=== PATIENT | male | born 1960 | race Caucasian/White ===

== ENCOUNTER 2018-12-07 11:37 | Day surgery (SDC) | payer BC, OTHER ==
[~2018-12-07 11:37] MED LIST: Lactated Ringers 1,000 ML IV SCH; Propofol 200 MG/20 ML SDV ONE; Sodium Chloride 0.9% 10 ML Syringe FLUSH PRN
--- NOTE | 2018-12-07 12:05 | PCM.HPR ---
H & P Addendum review - H & P Addendum Review Date of Original H & P: 11/21/18 Date Reviewed: 12/07/18 Time Reviewed: 12:05 Patient was Examined: No Changes
[2018-12-07] MEDS ORDERED: Midazolam 1 MG/ML 2 ML SDV ONE ×2 (12:08→12:10)
[2018-12-07] MEDS ORDERED: Propofol 200 MG/20 ML SDV ONE ×2 (12:08→12:10)
[2018-12-07] MEDS ORDERED: Lidocaine 2% 100 MG/5 ML Syringe ONE (12:10)
--- NOTE | 2018-12-07 13:12 | PCM.OPNOTE ---
- General Post-Op/Procedure Note Date of Surgery/Procedure: 12/07/18 Operative Procedure(s): EGD with Bx. Colonoscopy with polypectomy Findings: Ulcerative Esophagitis Hiatal Hernia Sig Polyp Sig tics Pre Op Diagnosis: GERD. Screening Colonoscopy Post-Op Diagnosis: Same Anesthesia Technique: MAC Primary Surgeon: Ezequiel Gerardo Anesthesia Provider: Madelin Hammonds Pathology: Distal Esophagus Sig polyp at 30 cm Condition: Good
--- NOTE | 2018-12-08 09:35 | OR ---
Date of Procedure: 12/07/2018 PREOPERATIVE DIAGNOSES: 1. Gastroesophageal reflux disease. 2. Colon screening. POSTOPERATIVE DIAGNOSES: 1. Distal esophagitis with ulceration. 2. Hiatal hernia. 3. Sigmoid colon polyp. 4. Sigmoid diverticulosis. PROCEDURES: 1. Esophagogastroduodenoscopy with biopsy. 2. Colonoscopy with polypectomy. ANESTHESIA: IV sedation. DESCRIPTION OF PROCEDURE: The patient was brought to the procedure room where he was placed on his left side and IV sedation administered. Oral bite block was placed and the upper endoscope was advanced into the esophagus under direct vision without difficulty. Vocal cords were viewed and were normal. The scope was advanced to the 3rd portion of the duodenum. Duodenum and pylorus were normal. Antrum and body of the stomach were normal. Retroflexion revealed a regular hiatal hernia approximately 3 cm in length. The squamocolumnar junction was located at 35 cm from the incisors and the distal esophagus was photographed and biopsied. There were at least 3 linear ulcerations extending for 1 to 2 cm. Biopsies were taken. Minimal oozing occurred. Air was removed from the stomach and the scope withdrawn through the remaining esophagus, which appeared normal. The patient was fairly difficult to keep sedated because of his history of smoking and coughing during the procedure. Next, colonoscopy was performed after digital rectal exam was performed, which was normal. Colonoscope was inserted and I was able to get to the hepatic flexure at which time, I could not advance further. With changing him to the supine position and providing pressure on the abdomen, I was able to advance to the cecum, which was identified by visualizing the appendiceal lumen and ileocecal valve. Prep was good and surfaces were well visualized. Upon withdrawing the scope, the ascending, transverse, and descending colon were normal in appearance. Sigmoid colon was tortuous and had multiple diverticula present. At 30 cm, was a large pedunculated polyp measuring 15 mm in diameter. This was removed with a large cautery snare and retrieved and sent for pathology review. Rectum was normal and retroflexion was normal. Air was removed and the scope withdrawn. The patient tolerated the procedure well and returned to recovery in stable condition. The patient will follow up with Cheryl Graham next week. He had been on antacid medication and should restart and remain on this long-term. The polyp was obviously adenomatous and would recommend that he have a repeat colonoscopy again in 2 years. MODL SURY SANCHEZ MD /[id number]
== END 2018-12-07 14:51 | disposition home or self-care (01) ==
LOC: LL.SDS 11:37
PROVIDERS: ATTEND Surgery
DX: D12.5 Benign neoplasm of sigmoid colon (principal); K21.0 Gastro-esophageal reflux disease with esophagitis; R19.4 Change in bowel habit; K57.30 Diverticulosis of large intestine without perforation or abscess without bleeding; K44.9 Diaphragmatic hernia without obstruction or gangrene
CPT/HCPCS: J2001; J2250; J2704; J7120

== ENCOUNTER 2022-03-11 08:25 | Day surgery (SDC) | payer BC ==
[~2022-03-11 08:25] MED LIST changes: -Lactated Ringers 1,000 ML IV SCH
[2022-03-11] MEDS: Lactated Ringers 1,000 ML IV SCH (08:55)
[2022-03-11] MEDS ORDERED: Propofol 200 MG/20 ML SDV ONE (10:22)
[2022-03-11 18:01] VITALS: BP 129/85; PULSE 58
== END 2022-03-11 11:06 | disposition home or self-care (01) ==
LOC: LL.SDS 08:25
PROVIDERS: ATTEND Surgery
DX: Z12.11 Encounter for screening for malignant neoplasm of colon (principal); D12.3 Benign neoplasm of transverse colon; K57.30 Diverticulosis of large intestine without perforation or abscess without bleeding; Z98.890 Other specified postprocedural states; Z79.899 Other long term (current) drug therapy; Z87.891 Personal history of nicotine dependence
CPT/HCPCS: J2704; J7120